=== PATIENT | male | born 1985 | race Caucasian/White ===

== ENCOUNTER 2018-04-04 08:24 | Emergency (ER) ==
--- NOTE | 2018-04-04 08:41 | ED.PDOC ---
General ED Provider: Dr. ADIS MACHUCA Chief Complaint: Chest Pain Stated Complaint: chest pain Time Seen by Physician: 08:39 (pain onset 2 hrs ago ) Mode of Arrival: Walk-In Information Source: Patient Exam Limitations: No limitations Nursing and Triage Documentation Reviewed and Agree: Yes Reviewed sepsis parameters & appropriate labs ordered?: Yes System Inflammatory Response Syndrome: Not Applicable Sepsis Protocol: For patient's 13 years and over: Temp is 96.8 and below OR 101 and greater Pulse >90 BPM Resp >20/minute Acutely Altered Mental Status Are patient's symptoms suggestive of a new infection, such as: -Pneumonia -Skin, Soft Tissue -Endocarditis -UTI -Bone, Joint Infection -Implantable Device -Acute Abdominal Infection -Wound Infection -Meningitis -Blood Stream Catheter Infection -Unknown System Inflammatory Response Syndrome: Not Applicable (pt's nurse michael was present through out evaluation) Cardiovascular Complaint Exam - Chest Pain Complaint/Exam Onset: Gradual Duration: 2 hours ago at rest does not smoke Symptoms Are: Resolved Timing: Intermittent Length of Chest Pain Episodes: 1 hr does not have any radiation, denied trauma Initial Severity: Mild Current Severity: Mild Location: Reports: Discrete, Midsternal Pain Radiates: Reports: None. Denies: Back, Left shoulder, Right shoulder, Left arm, Right arm, Jaw, Neck, Epigastrium, Other Character: Reports: Dull, Aching Aggravating: Reports: None Alleviating: Reports: Rest, Spontaneous resolution Associated Signs and Symptoms: Denies: Diaphoresis, Nausea, Vomiting, Fever, Palpitations, Cough, Hemoptysis, Back pain, Abdominal pain, Dizziness, Short of air, Calf pain, Calf swelling Related History: Denies: Similar episode Related Surgical History: Reports: None History of Healthcare-Acquired Pneumonia: Reports: No AMI/ACS Risk Factors: Reports: None TAD Risk Factors: Reports: None Pulmonary Embolism Risk Factors: Reports: None Prior Care for this Complaint: No Recent Stress Test: No Recent Echo/LV Function: No JVD Present: No Subcutaneous Emphysema Present: No Diminshed Breath Sounds: No Reproducible Chest Wall Pain: No Bilateral Pulses Present: No Chest Picture: 1 - pain If Risk Factors for AMI/ACS Consider: EKG, Cardiac Enzymes Differential Diagnoses: Stable Angina, Lower Resp. Infection Quality Indicators For Acute UT or Cardiac Chest Pain: EKG in 10min. Quality Indicator For Non-Traumatic Chest Pain/Syncope: EKG Performed Patient Advised to Stop Smoking: No (does not smoke ) Review of Systems - Review Of Systems Constitutional: Reports: No symptoms Eyes: Reports: No symptoms Ears, Nose, Mouth, Throat: Reports: No symptoms Respiratory: Reports: No symptoms Cardiac: Reports: Chest pain GI: Reports: No symptoms : Reports: No symptoms Musculoskeletal: Reports: No symptoms Skin: Reports: No symptoms Neurological: Reports: No symptoms Endocrine: Reports: No symptoms Hematologic/Lymphatic: Reports: No symptoms All Other Systems: Reviewed and Negative Past Medical History - Past Medical History Previously Healthy: Yes Endocrine: Reports: None Cardiovascular: Reports: None Respiratory: Reports: None Hematological: Reports: None Gastrointestinal: Reports: None Genitourinary: Reports: None Neuro/Psych: Reports: None Musculoskeletal: Reports: None Cancer: Reports: None - Surgical History General Surgical History: Reports: None - Family History Family History: Reports: None - Social History Smoking Status: Chews tobacco Hx Substance Use: No Alcohol Screening: Occasionally Physical Exam - Physical Exam Appearance: Well-appearing, No pain distress, Well-nourished Eyes: ANAYA, EOMI, Conjunctiva clear ENT: Ears normal, Nose normal, Oropharynx normal Respiratory: Airway patent, Breath sounds clear, Breath sounds equal, Respirations nonlabored Cardiovascular: RRR, Pulses normal, No rub, No murmur GI/: Soft, Nontender, No masses, Bowel sounds normal, No Organomegaly Musculoskeletal: Normal strength, ROM intact, No edema, No calf tenderness Skin: Warm, Dry, Normal color Neurological: Sensation intact, Motor intact, Reflexes intact, Cranial nerves intact, Alert, Oriented Psychiatric: Affect appropriate, Mood appropriate Critical Care Note - Critical Care Note Total Time (mins): 0 Course - Course Hematology/Chemistry: 04/04/18 08:37 04/04/18 08:45 Orders, Labs, Meds: Lab Review 04/04/18 04/04/18 04/04/18 08:15 08:37 08:45 WBC 6.91 RBC 5.14 Hgb 15.4 Hct 42.9 MCV 83.5 MCH 30.0 MCHC 35.9 H RDW Coeff of Alexy 11.9 Plt Count 148 Immature Gran % (Auto) 0.3 Neut % (Auto) 50.5 Lymph % (Auto) 36.8 Haakon % (Auto) 8.5 Eos % (Auto) 3.3 Baso % (Auto) 0.6 Immature Gran # (Auto) 0.0 Neut # (Auto) 3.5 Lymph # (Auto) 2.5 Haakon # (Auto) 0.6 Eos # (Auto) 0.2 Baso # (Auto) 0.0 D-Dimer (Manual) 162.61 Sodium 139 Potassium 4.1 Chloride 105 Carbon Dioxide 24 Anion Gap 14.1 BUN 16 Creatinine 0.98 Estimated GFR (MDRD) 88.00 BUN/Creatinine Ratio 16.32 Glucose 104 H Calcium 9.3 Total Bilirubin 0.7 AST 18 ALT 29 Alkaline Phosphatase 60 Total Creatine Kinase 170 CK-MB (CK-2) 1.4 CK-MB (CK-2) % 0.31455 Troponin I < 0.0100 Total Protein 7.2 Albumin 4.1 Globulin 3.1 Albumin/Globulin Ratio 1.32 Orders Category Date Time Status EKG-(ED ONLY) Stat CARDIO 04/04/18 08:37 Completed EKG-(ED ONLY) Stat CARDIO 04/04/18 09:55 Ordered CBC W/ AUTO DIFF Stat LAB 04/04/18 08:37 Completed COMPREHENSIVE METABOLIC PANEL Stat LAB 04/04/18 08:45 Completed CREATINE KINASE Stat LAB 04/04/18 08:45 Completed D-DIMER Stat LAB 04/04/18 08:15 Completed TROPONIN I Stat LAB 04/04/18 08:45 Completed URINE DRUG SCREEN (RAPID FOR ED) [DRUG SCREEN, URINE, LAB 04/04/18 08:38 Uncollected RAPID] Stat Vital Signs: Temp Pulse Resp BP Pulse Ox 04/04/18 08:31 97.3 F L 65 16 123/85 100 ANNA Risk Score ANNA Risk Score: Risk Score Odds of by 30D 0 0.1 (0.1-0.2) 1 0.3 (0.2-0.3) 2 0.4 (0.3-0.5) 3 0.7 (0.6-0.9) 4 1.2 (1.0-1.5) 5 2.2 (1.9-2.6) 6 3.0 (2.5-3.6) 7 4.8 (3.8-6.1) Departure - Departure Time of Disposition: 10:52 Disposition: AMA Discharge Problem: Chest pain Instructions: Angina (ED) Condition: Good Pt referred to PMD for follow-up: Yes IPMP verified?: No Additional Instructions: Please call your Family Physician as soon as possible to schedule a follow-up appointment. Allergies/Adverse Reactions: Allergies tetanus and diphtheria toxoids Adverse Reaction (Verified 04/04/18 08:34) Home Medications: Ambulatory Orders 1 [No Reported Medications] 04/04/18 Disposition Discussed With: Patient, Family
[2018-04-04 08:47] VITALS: BP 123/85; TEMP 97.3; BMI 33.0
== END 2018-04-04 11:00 | disposition left against medical advice (07) ==
LOC: ED 08:24
DX: R07.9 Chest pain, unspecified (principal); Z72.0 Tobacco use
CPT/HCPCS: 36415; 80053; 82550; 82553; 84484; 85025; 85379; 93005; 93010; 99284

== ENCOUNTER 2019-04-17 14:56 | Outpatient (CLI) | END 2019-04-17 14:57 | disposition home or self-care (01) | LOC: RHC-LAB 14:56 → FCC-LAB 14:57 | PROVIDERS: ATTEND Family Medicine | DX: R19.7 Diarrhea, unspecified (principal) | CPT/HCPCS: 36415 ==